=== PATIENT | male | born 1960 | race Asian ===

== ENCOUNTER 2024-10-19 10:21 | Observation (INO) | payer OTHER ==
[2024-10-19 10:51] VITALS: BP 183/102; PULSE 69; RESP 16; TEMP 98.2; BMI 32.2
[2024-10-19 11:49] LABS: INR 0.96 (0.83-1.09)
[2024-10-19 11:58] LABS: HEMOGLOBIN 14.2 G/dL (11.7-16.9); MCH 30.9 pg (25.7-33.7); MCHC 33.9 g/dl (32.0-35.9); MEAN CELL VOLUME 91.2 fl (80-96); MEAN PLT VOLUME 9.3 fl (7.5-11.1); PLATELET COUNT 212.8 10^3/uL (134-434); RDW 13.6 % (11.9-15.9); WHITE BLOOD COUNT 5.8 10^3/uL (4.0-10.8)
[2024-10-19 12:04] LABS: ALBUMIN 4.1 g/dl (3.4-5.0); ALK PHOS 74 U/L (45-117); ANION GAP 8 mmol/L (4-13); BILIRUBIN,TOTAL 1.3 mg/dl (0.2-1); CALCIUM 9.2 mg/dl (8.5-10.1); CHLORIDE 102 mmol/L (98-107); CO2 27 mmol/L (21-32); CREATININE 1.1 mg/dl (0.6-1.3); GLUCOSE,RANDOM 107 mg/dl (74-106); SGOT/AST 14 U/L (15-37); SGPT/ALT 13 U/L (7-52); SODIUM 137 mmol/L (136-145); TOT PROT 6.6 g/dl (6.4-8.2)
[2024-10-19 12:56] LABS: ARTERIAL BLD GAS O2 SATURATION 99.6 % (95-98); ARTERIAL BLOOD GAS BASE EXCESS -0.6 mmol/L (-2-2); ARTERIAL BLOOD GAS PO2 273.5 mmHg (80-100); ARTERIAL BLOOD GAS pH 7.406 (7.350-7.450)
[2024-10-19 13:10] LABS: PLATELET ESTIMATE ADEQUATE
[2024-10-19 13:11] LABS: COCAINE, UR NEGATIVE (NEGATIVE); METHADONE, UR NEGATIVE (NEGATIVE); OPIATES, URI NEGATIVE (NEGATIVE); PHENCYCLIDINE,URINE NEGATIVE (NEGATIVE); URINE BENZODIAZEPINES NEGATIVE (NEGATIVE)
[2024-10-19 13:25] LABS: URINE AMPHETAMINES NEGATIVE (NEGATIVE); URINE BARBITURATES NEGATIVE (NEGATIVE)
[2024-10-19] MEDS ORDERED: amLODIPine BESYLATE 5 MG TABLET (FP) ONE (16:28)
[2024-10-19] MEDS: amLODIPine BESYLATE 5 MG TABLET (FP) PO ONE (16:30)
[2024-10-19 20:57] LABS: HIV INTERPRETATION NEGATIVE (NEGATIVE)
== END 2024-10-19 16:35 | disposition home or self-care (01) ==
LOC: FER 10:21 → FM/S 13:26
PROVIDERS: ADMIT Internal Medicine; ATTEND Internal Medicine
DX: G93.41 Metabolic encephalopathy (principal); R41.82 Altered mental status, unspecified; I10 Essential (primary) hypertension
CPT/HCPCS: 36415; 36600; 70450-TC; 71045-TC-FY; 71275-TC; 80053; 80307; 81003; 82375; 82550; 82803; 83605; 84484; 85027; 85610; 86803; 87389; 93005; 99285-25; G0378; Q9967